=== PATIENT | female | born 1970 | race Caucasian/White ===

== ENCOUNTER → 2018-02-07 | Outpatient (CLI) | payer OTHER ==
[~2018-02-07] MED LIST: HYDROCODONE-AP1 EAC6 PO; NOHOMEMEDICATIONS
== END ==
LOC: RAD 13:34
DX: M54.17 Radiculopathy, lumbosacral region (principal); Z90.49 Acquired absence of other specified parts of digestive tract

== ENCOUNTER → 2018-02-21 | Outpatient (CLI) | payer OTHER | LOC: MRI | DX: M47.896 Other spondylosis, lumbar region (principal) ==